=== PATIENT | female | born 1980 | race Two or more races ===

== ENCOUNTER 2021-06-28 17:23 | Emergency (ER) | payer BC ==
[~2021-06-28] VITALS: Ht 170.2 cm; Wt 71.7 kg
== END 2021-06-28 22:57 | disposition home or self-care (01) ==
LOC: ER 17:23
DX: S62.602A Fracture of unspecified phalanx of right middle finger, initial encounter for closed fracture (principal); W19.XXXA Unspecified fall, initial encounter; Y92.821 Forest as the place of occurrence of the external cause